=== PATIENT | male | born 1970 | race African-American/Black ===

== ENCOUNTER 2017-01-11 08:02 | Emergency (ER) | payer MEDICARE, OTHER, BC ==
[~2017-01-11 08:02] MED LIST: CELEBREX2; CELEBREX2 PO; KLOR-CON M2020 MEQ OR; KLOR-CON M2020 MEQ PO; L40 OR; L40 PO; LEVAQUIN750 MG PO; NORV10 PO; PCET PO; PRIN20; PRIN20 PO; PROTONIX PO
[2017-01-11 08:25] LABS: BASOPHILS 0.1 %; BASOPHILS ABSOLUTE 0.01 10/3/uL (0.0-0.16); EOSINOPHILS 3.3 %; EOSINOPHILS ABSOLUTE 0.24 10/3/uL (0.0-0.53); ER CBC TAT 0 Hrs 08 Mins; HEMATOCRIT 40.9 % (40.0-51.0); HEMOGLOBIN 13.9 g/dL (13.6-17.8); LYMPHOCYTES 44.7 %; LYMPHOCYTES ABSOLUTE 3.22 10/3/uL (0.67-4.30); MANUAL DIFF NO %; MEAN CORPUSCULAR HEMOGLOB 28.9 pg (26.0-34.0); MEAN PLATELET VOLUME 9.5 fL (9.2-13.0); MONOCYTES 4.6 %; MONOCYTES ABSOLUTE 0.33 10/3/uL (0.21-1.20); NEUTROPHILS 47.3 %; PLATELET COUNT 190 10/3/uL (150-400); RBC DISTRIBUTION WIDTH 14.9 % (12.0-16.0); RED CELL COUNT 4.81 10/6/uL (4.7-6.1); WHITE BLOOD CELLS 7.2 10/3/uL (4.5-10.5)
[2017-01-11 08:38] LABS: A/G RATIO 0.9 (0.7-1.9); ALBUMIN 3.4 G/DL (3.5-5.0); BUN (BLOOD UREA NITROGEN) 11 MG/DL (6-23); CHLORIDE, SERUM 106 MMOL/L (96-112); CO2 (CARBON DIOXIDE) 29 MMOL/L (24-34); CREATININE 0.84 MG/DL (0.70-1.30); GFR AFRICAN AMERICAN 123 ML/MIN (>=60); GFR NON AFRICAN AMERICAN 106 ML/MIN (>=60); GLUCOSE, SERUM 86 MG/DL (60-99); POTASSIUM, SERUM 3.4 MMOL/L (3.5-5.3); SGOT(AST) 32 U/L (5-40); SGPT(ALT) 33 U/L (5-65); SODIUM, SERUM 144 MMOL/L (135-148); TOTAL BILIRUBIN 0.4 MG/DL (0-1.2); TOTAL PROTEIN 7.4 G/DL (6.0-8.5)
[2017-01-11 08:41] LABS: ALKALINE PHOSPHATASE 65 U/L (45-117)
[2017-01-11 08:49] LABS: ASCORBIC ACID (UR NOT ORDER) NEG (NEG); BILIRUBIN, URINE NEGATIVE (NEG); ER URINALYSIS TAT 0 Hrs 15 Mins; KETONE, URINE NEGATIVE (NEG); LEUKOCYTE ESTERASE(NOT OR NEG (NEG); NITRITE (URINE) NEG (NEG); WBC (NOT ORDERED) (RFLEX) < 1 (0-5)
[2017-06-01] MEDS ORDERED: COREG3 PO (09:19)
[2017-07-20] MEDS ORDERED: GABAPENTIN PO (13:54)
[2017-07-25] MEDS ORDERED: ROXICODONE15 MG PO (11:08)
[2017-07-25] MEDS ORDERED: ULTRAM50 PO (11:10)
[2017-07-25] MEDS ORDERED: NEUR300 PO (11:10)
[2017-07-25] MEDS ORDERED: METHOC750B PO (11:11)
== END 2017-01-11 10:23 | disposition home or self-care (01) ==
LOC: ER 08:02
PROVIDERS: Physician Assistant
DX: K85.90 Acute pancreatitis without necrosis or infection, unspecified (principal); I10 Essential (primary) hypertension; Z79.899 Other long term (current) drug therapy
CPT/HCPCS: 74176; 80053; 81001; 83690; 85025; 96374; 96375; 99285; J2405

== ENCOUNTER 2017-03-01 02:00 | Emergency (ER) | payer BC ==
[2017-03-01 02:55] LABS: BASOPHILS 0.2 %; BASOPHILS ABSOLUTE 0.02 10/3/uL (0.0-0.16); EOSINOPHILS 2.7 %; EOSINOPHILS ABSOLUTE 0.22 10/3/uL (0.0-0.53); ER CBC TAT 0 Hrs 12 Mins; HEMATOCRIT 43.3 % (40.0-51.0); HEMOGLOBIN 14.8 g/dL (13.6-17.8); IMMATURE GRANULOCYTES 0.1 %; IMMATURE GRANULOCYTES ABSOLUTE 0.01 10/3/uL (0.0-0.11); LYMPHOCYTES 42.1 %; LYMPHOCYTES ABSOLUTE 3.48 10/3/uL (0.67-4.30); MEAN CORPUS HGB CONC 34.2 g/dL (32.0-36.0); MEAN CORPUSCULAR HEMOGLOB 29.5 pg (26.0-34.0); MEAN CORPUSCULAR VOLUME 86.3 fL (80-100); MEAN PLATELET VOLUME 10.5 fL (9.2-13.0); MONOCYTES 4.1 %; MONOCYTES ABSOLUTE 0.34 10/3/uL (0.21-1.20); NEUTROPHILS 50.8 %; PLATELET COUNT 223 10/3/uL (150-400); RED CELL COUNT 5.02 10/6/uL (4.7-6.1); WHITE BLOOD CELLS 8.3 10/3/uL (4.5-10.5)
[2017-03-01 02:57] LABS: MANUAL DIFF NO %
[2017-03-01 03:00] LABS: ASCORBIC ACID (UR NOT ORDER) 20 (NEG); BILIRUBIN, URINE NEGATIVE (NEG); ER URINALYSIS TAT 0 Hrs 09 Mins; KETONE, URINE NEGATIVE (NEG); LEUKOCYTE ESTERASE(NOT OR NEG (NEG); NITRITE (URINE) NEG (NEG); WBC (NOT ORDERED) (RFLEX) 1 (0-5)
[2017-03-01 03:03] LABS: A/G RATIO 1.1 (0.7-1.9); ALBUMIN 3.9 G/DL (3.5-5.0); ALKALINE PHOSPHATASE 75 U/L (45-117); BUN (BLOOD UREA NITROGEN) 12 MG/DL (6-23); CHLORIDE, SERUM 110 MMOL/L (96-112); CO2 (CARBON DIOXIDE) 29 MMOL/L (24-34); GFR AFRICAN AMERICAN 85 ML/MIN (>=60); GFR NON AFRICAN AMERICAN 73 ML/MIN (>=60); GLOBULIN 3.6 G/DL (2.5-4.1); POTASSIUM, SERUM 3.4 MMOL/L (3.5-5.3); SGPT(ALT) 48 U/L (5-65); SODIUM, SERUM 146 MMOL/L (135-148); TOTAL BILIRUBIN 0.3 MG/DL (0-1.2); TOTAL PROTEIN 7.5 G/DL (6.0-8.5)
[2017-03-01 03:11] LABS: GLUCOSE, SERUM 108 MG/DL (60-99)
[2017-03-01 03:12] LABS: SGOT(AST) 38 U/L (5-40)
[2017-06-01] MEDS ORDERED: COREG3 PO (09:19)
[2017-07-20] MEDS ORDERED: GABAPENTIN PO (13:54)
[2017-07-25] MEDS ORDERED: ROXICODONE15 MG PO (11:08)
[2017-07-25] MEDS ORDERED: NEUR300 PO (11:10)
[2017-07-25] MEDS ORDERED: ULTRAM50 PO (11:10)
[2017-07-25] MEDS ORDERED: METHOC750B PO (11:11)
== END 2017-03-01 03:53 | disposition left against medical advice (07) ==
LOC: ER 02:00
PROVIDERS: Emergency Medicine
DX: R11.2 Nausea with vomiting, unspecified (principal); R10.9 Unspecified abdominal pain; Z53.21 Procedure and treatment not carried out due to patient leaving prior to being seen by health care provider
CPT/HCPCS: 80053; 81001; 83690; 85025

== ENCOUNTER 2017-03-31 23:46 | Emergency (ER) | payer MEDICARE, OTHER ==
[2017-04-01 00:22] LABS: BASOPHILS 0.2 %; BASOPHILS ABSOLUTE 0.02 10/3/uL (0.0-0.16); EOSINOPHILS 2.5 %; EOSINOPHILS ABSOLUTE 0.23 10/3/uL (0.0-0.53); ER CBC TAT 0 Hrs 00 Mins; HEMATOCRIT 41.2 % (40.0-51.0); HEMOGLOBIN 14.1 g/dL (13.6-17.8); IMMATURE GRANULOCYTES 0.2 %; IMMATURE GRANULOCYTES ABSOLUTE 0.02 10/3/uL (0.0-0.11); LYMPHOCYTES 38.7 %; MEAN CORPUS HGB CONC 34.2 g/dL (32.0-36.0); MEAN CORPUSCULAR HEMOGLOB 29.4 pg (26.0-34.0); MEAN PLATELET VOLUME 10.1 fL (9.2-13.0); MONOCYTES 3.9 %; MONOCYTES ABSOLUTE 0.35 10/3/uL (0.21-1.20); NEUTROPHILS 54.5 %; NEUTROPHILS ABSOLUTE 4.92 10/3/uL (2.02-8.40); PLATELET COUNT 184 10/3/uL (150-400); RED CELL COUNT 4.79 10/6/uL (4.7-6.1)
[2017-04-01 00:23] LABS: MANUAL DIFF NO %
[2017-04-01 00:34] LABS: BUN (BLOOD UREA NITROGEN) 13 MG/DL (6-23); CALCIUM, SERUM 8.5 MG/DL (8.5-10.4); CHEST PAIN PROFILE TAT 0 Hrs 00 Mins; CHLORIDE, SERUM 108 MMOL/L (96-112); CO2 (CARBON DIOXIDE) 29 MMOL/L (24-34); CREATININE 0.87 MG/DL (0.70-1.30); GFR AFRICAN AMERICAN 122 ML/MIN (>=60); GFR NON AFRICAN AMERICAN 105 ML/MIN (>=60); GLUCOSE, SERUM 107 MG/DL (60-99); POTASSIUM, SERUM 3.2 MMOL/L (3.5-5.3); SODIUM, SERUM 142 MMOL/L (135-148); TROPONIN I <0.02 NG/ML (<0.05)
[2017-04-01 00:43] LABS: PARTIAL THROMBO TIME 26.8 SEC (22.5-37.2); PROTIME (NOT ORD) 13.1 SEC (12.0-14.5)
[2017-06-01] MEDS ORDERED: COREG3 PO (09:19)
[2017-07-20] MEDS ORDERED: GABAPENTIN PO (13:54)
[2017-07-25] MEDS ORDERED: ROXICODONE15 MG PO (11:08)
[2017-07-25] MEDS ORDERED: ULTRAM50 PO (11:10)
[2017-07-25] MEDS ORDERED: NEUR300 PO (11:10)
[2017-07-25] MEDS ORDERED: METHOC750B PO (11:11)
== END 2017-04-01 02:42 | disposition home or self-care (01) ==
LOC: ER 23:46
PROVIDERS: Hospitalist
DX: M25.511 Pain in right shoulder (principal); E87.6 Hypokalemia; I10 Essential (primary) hypertension; K21.9 Gastro-esophageal reflux disease without esophagitis; Z79.891 Long term (current) use of opiate analgesic; Z79.899 Other long term (current) drug therapy
CPT/HCPCS: 71020; 72050; 80048; 83735; 84484; 85025; 85610; 85730; 93005; 96374; 99285; A9270-GY; J1885